=== PATIENT | female | born 1965 | race Caucasian/White ===

== ENCOUNTER 2024-05-05 18:44 | Emergency (ER) | payer BC ==
[~2024-05-05] VITALS: Ht 152.4 cm; Wt 58.0 kg
[2024-05-05 18:46] VITALS: O2SAT 100
[2024-05-05 19:09] VITALS: BP 122/84; PULSE 76; RESP 18; TEMP 98; O2SAT 100
[2024-05-05] MEDS ORDERED: ACET-2708 MT (21:57)
[2024-05-05] MEDS ORDERED: BO1 TP (21:57)
== END 2024-05-05 22:34 | disposition home or self-care (01) ==
LOC: ER 18:44
DX: S01.81XA Laceration without foreign body of other part of head, initial encounter (principal); R51.9 Headache, unspecified; W22.03XA Walked into furniture, initial encounter; Y93.89 Activity, other specified; Y92.89 Other specified places as the place of occurrence of the external cause; Y99.8 Other external cause status
CPT/HCPCS: 99282